=== PATIENT | female | born 1995 | race African-American/Black ===

== ENCOUNTER 2017-10-15 08:47 | Emergency (ER) | payer OTHER, MEDICAID ==
[~2017-10-15] VITALS: Ht 172.7 cm; Wt 65.8 kg
[2017-10-15 08:56] VITALS: BP 127/82
[2017-10-15] MEDS ORDERED: Lidocaine 1% MPF 10mg/ml 5ml INJ ONE (09:00)
[2017-10-15] MEDS ORDERED: Tetanus/Diptheria/Pertussis Vaccine 0.5ml Syr IM ONE (09:00)
--- NOTE | 2017-10-15 09:37 | Emergency Room Report ---
History of Present Illness General Chief Complaint: Laceration Source: Patient Present Illness HPI Patient is a 22-year-old female who presented after laceration to her fingers. Patient reports injuring her fingers while cutting using a knife. Patient states that she is right-hand dominant. Injury occurred left index middle and ring finger. The patient denies any pulsatile bleeding or numbness. She denies foreign body. Allergies: Coded Allergies: No Known Allergies (Unverified , 10/15/17) Patient History Past Medical History: see triage record Last Menstrual Period: 09/11/17 Reviewed Nursing Documentation: PMH: Agreed; PSxH: Agreed Nursing Documentation-PM Past Medical History: No Stated History Review of Systems All Other Systems: negative except mentioned in HPI Physical Exam Vital Signs Date Time Temp Pulse Resp B/P (MAP) Pulse Ox O2 Delivery O2 Flow Rate FiO2 10/15/17 08:50 98.1 86 18 127/82 100 Room Air 98.1 General Appearance: well appearing, no apparent distress, alert, GCS 15 Head: normocephalic, atraumatic ENT: hearing grossly normal, normal voice Neck: full range of motion, supple Respiratory: lungs clear, no respiratory distress, speaking full sentences Musculoskeletal: no calf tenderness Neurologic: normal inspection, alert, oriented x3, responsive, normal gait Psychiatric: mood/affect normal Skin: no rash, laceration - laceration to index, third and fourth finger distal phalanx no pulsatile bleeding no tendon injury noted Medical Decision Making Diagnostic Impression: Primary Impression: Laceration ER Course Patient presented for laceration. Differential diagnoses included foreign body , nerve injury, arterial injury among others. Patient has a benign exam and does not appear to require any further imaging or laboratory testing at this time. The patient is advised to follow up with primary care doctor in 2-3 days for wound check. Patient is advised to return if any worsening condition or if any changes in status that are concerning. This report is dictated with [employer] z[employer] operator software which may occasionally lead to discrepancies related to use of this software. Last Vital Signs Date Time Temp Pulse Resp B/P (MAP) Pulse Ox O2 Delivery O2 Flow Rate FiO2 10/15/17 08:56 98.1 86 18 127/82 100 Room Air 98.1 Status: improved Disposition: HOME, SELF-CARE Condition: Stable Scripts No Active Prescriptions or Reported Meds Referrals: [facility] (PCP) Santi Lr Oct 15, 2017 09:37
[2017-10-15] MEDS ORDERED: KEFLEX500 MG ORAL (09:52)
[2017-10-15] MEDS ORDERED: TYLENOL EXTRA500 MG ORAL (09:52)
[2017-10-15] MEDS ORDERED: Bacitracin Oint UD TOPIC ONE (10:30)
[2017-10-15 10:46] VITALS: BP 127/82
== END 2017-10-15 10:47 | disposition home or self-care (01) ==
LOC: EMR 09:30
DX: S61.213A Laceration without foreign body of left middle finger without damage to nail, initial encounter (principal); S61.215A Laceration without foreign body of left ring finger without damage to nail, initial encounter; Z23 Encounter for immunization; W26.0XXA Contact with knife, initial encounter; Y92.009 Unspecified place in unspecified non-institutional (private) residence as the place of occurrence of the external cause
CPT/HCPCS: 90471; 90715; 99283